=== PATIENT | female | born 1955 | race Caucasian/White ===

== ENCOUNTER 2019-03-14 11:09 | Emergency (ER) | payer OTHER ==
[~2019-03-14] VITALS: Ht 152.4 cm; Wt 83.0 kg
[2019-03-14 11:45] VITALS: Ht 152.4 cm; Wt 83.0 kg
[2019-03-14 12:24] LABS: BASOPHIL % 0.5 % (0-2); PLATELET COUNT 380 x10^3mcL (130-400)
[2019-03-14 13:14] LABS: ALBUMIN 3.4 g/dL (3.4-5.0); ALKALINE PHOSPHATASE 84 U/L (46-116); ALT/SGPT 26 U/L (14-59); AMYLASE 55 U/L (25-115); AST/SGOT 11 U/L (15-37); BILIRUBIN TOTAL 0.26 mg/dL (0.20-1.00); CALCIUM 9.1 mg/dL (8.5-10.1); CARBON DIOXIDE 26.5 mmol/L (21-32); CHLORIDE SERUM 106 mmol/L (98-107); CREATININE SERUM 0.8 mg/dL (0.6-1.0); GFR1 > 60 mL/min; GLUCOSE SERUM 88 mg/dL (74-106); LIPASE 173 IU/L (73-393); POTASSIUM SERUM 3.9 mmol/L (3.5-5.1); SODIUM SERUM 143 mmol/L (136-145)
[2019-03-14 13:17] LABS: TOTAL PROTEIN, SERUM 8.3 g/dL (6.4-8.2)
[2019-03-14 14:58] VITALS: BP 139/89
== END 2019-03-14 14:58 | disposition home or self-care (01) ==
LOC: ED 11:09
PROVIDERS: Emergency Medicine
DX: K57.32 Diverticulitis of large intestine without perforation or abscess without bleeding (principal); Z88.6 Allergy status to analgesic agent; Z88.5 Allergy status to narcotic agent; Z91.040 Latex allergy status
CPT/HCPCS: 36415; J1885